=== PATIENT | male | born 1965 | race Caucasian/White ===

== ENCOUNTER → 2016-10-21 | Outpatient (CLI) | payer BC ==
--- NOTE | 2016-10-21 09:34 | KCIC ---
PROCEDURE MRI thoracic spine without contrast. HISTORY Thoracic radiculopathy, bilateral radiculopathy, previous lumbar surgery 1994 TECHNIQUE Multiplanar, multi sequential non contrast MR imaging was performed of the thoracic spine. COMPARISON None FINDINGS Exam is degraded by motion, some image sequences repeated although also degraded by motion. Thoracic vertebral body stature and AP alignment are maintained. Counting is based on numbering from above due to prominent artifact in the lumbar region by multilevel hardware. There is hemangioma of the T6 vertebral body. Intervertebral disc spaces are adequate. There is no significant thoracic spinal stenosis or neural foramina compromise at any level of the thoracic spine. Thoracic cord caliber is within normal limits. Accurate evaluation for thoracic cord signal abnormality is compromised due to motion. No expansile thoracic cord signal abnormality is identified. However there is linear increased T2 signal abnormality of the central canal of the cord at T6 and T7, questionably at T3 and T4. There is no significant marrow edema. IMPRESSION 1. There is no significant thoracic spinal stenosis or neural foramina compromise. 2. 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 Electronically signed by: Preet Erickson MD (Oct 21, 2016 09:33:13)
== END | disposition home or self-care (01) ==
LOC: KCIC MRI 07:50
PROVIDERS: ATTEND Neurological Surgery
DX: M54.14 Radiculopathy, thoracic region (principal)
CPT/HCPCS: 72146